=== PATIENT | male | born 1995 | race Caucasian/White ===

== ENCOUNTER 2019-01-23 16:07 | Emergency (ER) | payer BC ==
[2019-01-23] MEDS ORDERED: Sodium Chloride 0.9% 2.5 ML Syringe FLUSH PRN (16:23)
[2019-01-23] MEDS ORDERED: Sodium Chloride 0.9% 10 ML Syringe FLUSH PRN (16:23)
--- NOTE | 2019-01-23 16:28 | EDM.PDOC ---
<Victorino Ortiz - Last Filed: 01/23/19 16:38> ED HPI GENERAL MEDICAL PROBLEM - General Chief Complaint: Abdominal Pain Stated Complaint: ABDOMINAL PAIN Time Seen by Provider: 01/23/19 16:28 Source of Information: Reports: Patient History Limitations: Reports: No Limitations - History of Present Illness INITIAL COMMENTS - FREE TEXT/NARRATIVE: HISTORY AND PHYSICAL: History of present illness: Patient is a 23-year-old male here with complaint of left lower abdominal pain and blood in stools. He states for months he has had blood in his stools on and off. Today he notes having more blood and it is darker. Stools have been looser but only once per day. He states the pain started this morning. He did have an episode of this pain 2 weeks ago and vomited and pain resolved. He denies fevers , chills, dysuria, hematuria. No previous abdominal surgeries. He denies significant past medical history. Review of systems: As per history of present illness and below otherwise all systems reviewed and negative. Past medical history: As per history of present illness and as reviewed below otherwise noncontributory. Surgical history: As per history of present illness and as reviewed below otherwise noncontributory. Social history: No reported history of drug or alcohol abuse. Family history: As per history of present illness and as reviewed below otherwise noncontributory. Physical exam: General: Patient sitting comfortably in no acute distress and nontoxic appearing HEENT: Atraumatic, normocephalic, pupils reactive, negative for conjunctival pallor or scleral icterus, mucous membranes moist, throat clear, neck supple, nontender, trachea midline. No meningeal signs. Lungs: Clear to auscultation, breath sounds equal bilaterally, chest nontender. Heart: S1S2, regular, negative for clicks, rubs, or overt murmur. Abdomen: Soft, nondistended. Mild LLQ tenderness to palpation. No rigidity, rebound, or guarding. Negative for masses or hepatosplenomegaly. Negative for costovertebral tenderness. Pelvis: Stable nontender. Genitourinary: External hemorrhoids noted. Positive stool guaiac. Rectal: Deferred. Extremities: Atraumatic, negative for cords or calf pain. Neurovascular unremarkable. Neuro: Awake, alert, oriented. Cranial nerves II through XII unremarkable. Cerebellum unremarkable. Motor and sensory unremarkable throughout. Exam nonfocal. Notes: Diagnostics: CBC, CMP, CT abdomen/pelvis w/ contrast Hemoccult positive Therapeutics: [] Prescriptions: Impression: [] Plan: [] Definitive disposition and diagnosis as appropriate pending reevaluation and review of above. left abdomen Pain Score (Numeric/FACES): 5 - Related Data Allergies Allergy/AdvReac Type Severity Reaction Status Date / Time No Known Allergies Allergy Verified 01/23/19 16:19 Home Meds: Home Meds . [No Known Home Meds] 01/23/19 [History] Past Medical History - Past Surgical History HEENT Surgical History: Reports: Myringotomy w Tube(s) Social & Family History - Family History Family Medical History: Noncontributory - Tobacco Use Smoking Status *Q: Light Tobacco Smoker Years of Tobacco use: 5 Packs/Tins Daily: 0.1 ED ROS GENERAL - Review of Systems Review Of Systems: ROS reveals no pertinent complaints other than HPI. ED EXAM, GI/ABD - Physical Exam Exam: See Below (see dictation) Course - Vital Signs Last Recorded V/S: Last Vital Signs Temp 36.0 C 01/23/19 16:20 Pulse 56 L 01/23/19 17:34 Resp 16 01/23/19 17:34 BP 131/66 01/23/19 17:34 Pulse Ox 98 01/23/19 17:34 - Orders/Labs/Meds Orders: Active Orders 24 hr Category Date Time Status Fecal Occult Blood Collection [RC] ASDIRECTED Care 01/23/19 16:45 Active Sodium Chloride 0.9% [Saline Flush] Med 01/23/19 16:23 Active 10 ml FLUSH ASDIRECTED PRN Sodium Chloride 0.9% [Saline Flush] Med 01/23/19 16:23 Active 2.5 ml FLUSH ASDIRECTED PRN Saline Lock Insert [OM.PC] Stat Oth 01/23/19 16:23 Ordered Medication Orders Sodium Chloride (Saline Flush) 10 ml FLUSH ASDIRECTED PRN PRN Reason: Keep Vein Open Sodium Chloride (Saline Flush) 2.5 ml FLUSH ASDIRECTED PRN PRN Reason: Keep Vein Open Labs: Laboratory Tests 01/23/19 01/23/19 01/23/19 Range/Units 16:22 16:22 16:50 WBC 6.95 (4.0-11.0) K/uL RBC 4.61 (4.50-5.90) M/uL Hgb 14.3 (13.0-17.0) g/dL Hct 41.5 (38.0-50.0) % MCV 90.0 (80.0-98.0) fL MCH 31.0 (27.0-32.0) pg MCHC 34.5 (31.0-37.0) g/dL RDW Std Deviation 46.1 (28.0-62.0) fl RDW Coeff of Marilee 14 (11.0-15.0) % Plt Count 207 (150-400) K/uL MPV 10.10 (7.40-12.00) fL Neut % (Auto) 42.4 L (48.0-80.0) % Lymph % (Auto) 46.2 H (16.0-40.0) % [place] % (Auto) 8.3 (0.0-15.0) % Eos % (Auto) 2.7 (0.0-7.0) % Baso % (Auto) 0.4 (0.0-1.5) % Neut # (Auto) 2.9 (1.4-5.7) K/uL Lymph # (Auto) 3.2 H (0.6-2.4) K/uL [place] # (Auto) 0.6 (0.0-0.8) K/uL Eos # (Auto) 0.2 (0.0-0.7) K/uL Baso # (Auto) 0.0 (0.0-0.1) K/uL Nucleated RBC % 0.0 /100WBC Nucleated RBCs # 0 K/uL Sodium 141 (136-148) mmol/L Potassium 3.8 (3.5-5.1) mmol/L Chloride 104 (98-107) mmol/L Carbon Dioxide 26.8 (21.0-32.0) mmol/L BUN 15 (7.0-18.0) mg/dL Creatinine 1.0 (0.8-1.3) mg/dL Est Cr Clr Drug Dosing 125.94 mL/min Estimated GFR (MDRD) > 60.0 ml/min Glucose 91 (74-106) mg/dL Calcium 9.5 (8.5-10.1) mg/dL Total Bilirubin 0.5 (0.2-1.0) mg/dL AST 20 (15-37) IU/L ALT 19 (14-63) IU/L Alkaline Phosphatase 51 (46-116) U/L Total Protein 7.7 (6.4-8.2) g/dL Albumin 4.2 (3.4-5.0) g/dL Globulin 3.5 (2.6-4.0) g/dL Albumin/Globulin Ratio 1.2 (0.9-1.6) Urine Color YELLOW Urine Appearance CLEAR Urine pH 6.0 (5.0-8.0) Ur Specific [place] 1.025 (1.001-1.035) Urine Protein NEGATIVE (NEGATIVE) mg/dL Urine Glucose (UA) NEGATIVE (NEGATIVE) mg/dL Urine Ketones NEGATIVE (NEGATIVE) mg/dL Urine Occult Blood NEGATIVE (NEGATIVE) Urine Nitrite NEGATIVE (NEGATIVE) Urine Bilirubin NEGATIVE (NEGATIVE) Urine Urobilinogen 0.2 (<2.0) EU/dL Ur Leukocyte Esterase NEGATIVE (NEGATIVE) Meds: Medications Generic Name Dose Route Start Last Admin Trade Name Freq PRN Reason Stop Dose Admin Sodium Chloride 10 ml 01/23/19 16:23 Saline Flush FLUSH ASDIRECTED PRN Keep Vein Open Sodium Chloride 2.5 ml 01/23/19 16:23 Saline Flush FLUSH ASDIRECTED PRN Keep Vein Open Discontinued Medications Generic Name Dose Route Start Last Admin Trade Name Freq PRN Reason Stop Dose Admin Iopamidol 100 ml 01/23/19 17:26 01/23/19 17:26 Isovue Multipack-370 (76%) IVPUSH 01/23/19 17:27 100 ml ONETIME STA Administration Departure - Departure Disposition: Home, Self-Care 01 Clinical Impression: Abdominal pain Qualifiers: Abdominal location: left lower quadrant Qualified Code(s): R10.32 - Left lower quadrant pain - Discharge Information Referrals: PCP,None [Primary Care Provider] - [facility] [Outside] [facility] [Outside] Forms: ED Department Discharge Additional Instructions: 1. Follow up in primary care. 2. Maintain soft stools. <Teagan Braga R - Last Filed: 01/23/19 18:10> Departure - Departure Time of Disposition: 18:09 Condition: Good
[2019-01-23 16:55] LABS: CHLORIDE,CL 104 mmol/L (98-107); SODIUM,NA 141 mmol/L (136-148)
[2019-01-23] MEDS ORDERED: Iopamidol 755 MG/ML 500 ML Multipack Bottle IVPUSH STA (17:26)
--- NOTE | 2019-01-23 17:55 | CT ---
INDICATION: Left-sided abdominal pain for several months, becoming worse lately. Bright red and dark red bloody stools. COMPARISON: None available TECHNIQUE: CT examination of the abdomen and pelvis was performed with the uneventful intravenous administration of 100 cc of Isovue 370 while 3 mm thick axial sections were obtained from the lung bases through the pubic symphysis. Oral contrast was not administered. Please note that all CT scans at this facility use dose modulation, iterative reconstruction, and/or weight-based dosing when appropriate to reduce radiation dose to as low as reasonably achievable. FINDINGS: In the abdomen, the liver has a tiny 4 millimeter hypodensity in the inferior aspect of the medial segment of the left lower liver, segment 4A, probably a cyst. The liver is otherwise normal in appearance. The spleen, pancreas, and adrenals are normal in appearance. The kidneys are normal in appearance. The gallbladder is normal in appearance. The abdominal aorta is normal in caliber with no sign of dilatation. There is no sign of retroperitoneal mass or adenopathy. The stomach, loops of small bowel, and colon in the abdomen are normal in appearance. In the pelvis, the appendix is normal in appearance with no sign of inflammatory process.. The loops of small bowel and colon in the pelvis are normal in appearance. The prostate is normal in appearance. The urinary bladder is normal in appearance. There is no sign of pelvic or inguinal mass or adenopathy. The lung bases are clear. A few tiny bone islands are seen in the right femoral head and the left femoral neck the osseous structures are otherwise normal in appearance for the patient`s age. IMPRESSION: Nothing seen to explain the patient`s melena or hematochezia. Normal appearance of the:, Rectum, and anus. Normal CT of the abdomen with contrast. Normal CT of the pelvis with contrast. Please note that all CT scans at this facility use dose modulation, iterative reconstruction, and/or weight-based dosing when appropriate to reduce radiation dose to as low as reasonably achievable. Dictated by Rajan Aaron MD @ Jan 23 2019 5:44PM Signed by Dr. Rajan Aaron @ Jan 23 2019 5:54PM
== END 2019-01-23 18:30 | disposition home or self-care (01) ==
LOC: MW.ED 16:07
DX: R10.32 Left lower quadrant pain (principal); F17.210 Nicotine dependence, cigarettes, uncomplicated
CPT/HCPCS: 36415; 74177; 80053; 81003; 85025; 99284; Q9967